=== PATIENT | male | born 1960 | race Caucasian/White ===

== ENCOUNTER 2018-06-01 13:19 | Emergency (ER) | payer OTHER ==
[~2018-06-01] VITALS: Ht 170.2 cm; Wt 78.0 kg
[2018-06-01] MEDS ORDERED: LIDOCAINE-MPF 2%, 2ML ONE ×2 (13:54)
[2018-06-01] MEDS ORDERED: DIPH,PERTUSS(ACELL),TET VAC/PF 0.5 ML IM-VACC ONE ×2 (14:00→14:38)
[2018-06-01] MEDS ORDERED: LIDOCAINE 2%, 20ML SQ ONE (14:00)
[2018-06-01] MEDS ORDERED: BACITRACIN ZINC OINT 500U/GM, 0.9 GM ONE (15:39)
[2018-06-01 15:48] VITALS: BP 180/100
[2018-06-01] MEDS ORDERED: BACITRACIN ZINC OINT 500U/GM, 0.9 GM TP ONE (16:00)
== END 2018-06-01 15:51 | disposition home or self-care (01) ==
LOC: ED 15:45
DX: S61.214A Laceration without foreign body of right ring finger without damage to nail, initial encounter (principal); I10 Essential (primary) hypertension; F17.210 Nicotine dependence, cigarettes, uncomplicated; X58.XXXA Exposure to other specified factors, initial encounter; Y93.89 Activity, other specified; Y99.8 Other external cause status; Y92.69 Other specified industrial and construction area as the place of occurrence of the external cause
CPT/HCPCS: 12001; 90471; 90715; 99283; J3490

== ENCOUNTER 2018-06-12 10:39 | Emergency (ER) | payer OTHER ==
[~2018-06-12] VITALS: Ht 170.2 cm; Wt 78.0 kg
[2018-06-12 10:54] VITALS: BP 168/106
== END 2018-06-12 11:41 | disposition home or self-care (01) ==
LOC: ED 11:25
DX: S91.114D Laceration without foreign body of right lesser toe(s) without damage to nail, subsequent encounter (principal); I10 Essential (primary) hypertension; X58.XXXD Exposure to other specified factors, subsequent encounter
CPT/HCPCS: 99281